=== PATIENT | female | born 1935 | race Caucasian/White ===

== ENCOUNTER 2017-01-18 13:30 | Emergency (ER) | payer MEDICARE, BC ==
[~2017-01-18] VITALS: Ht 160 cm; Wt 67.6 kg
[2017-01-18] MEDS ORDERED: ATOR10TA PO (13:50)
[2017-01-18] MEDS ORDERED: METO-304 PO (13:50)
[2017-01-18] MEDS ORDERED: LOSA25TA13 PO (13:50)
--- NOTE | 2017-01-18 14:29 | NUR ---
PATIENT OUT OF UNIT FOR CT SCAN VIA WHEELCHAIR
[2017-01-18] MEDS ORDERED: TRAMADOL HCL 50 MG TABLET PO ONE (14:30)
--- NOTE | 2017-01-18 14:50 | NUR ---
PATIENT BACK FROM CT SCAN WITH NO DISTRESS NOTED
[2017-01-18] MEDS ORDERED: TRAMADOL HCL 50 MG TABLET ONE (15:11)
--- NOTE | 2017-01-18 16:52 | NUR ---
Patient discharged to home in stable conditon WITH FRIEND TAKING PATIENT HOME. Written and verbal after care instructions given. Patient verbalizes understanding of instructions. WALKED OUT OF ER WITH STEADY GAIT WITH NO DISTRESS NOTED
[2017-01-18 16:53] VITALS: BP 138/77
== END 2017-01-18 16:54 | disposition home or self-care (01) ==
LOC: ER 13:30
DX: S40.012A Contusion of left shoulder, initial encounter (principal); M25.561 Pain in right knee; R51 Headache; I10 Essential (primary) hypertension; E78.5 Hyperlipidemia, unspecified; W01.0XXA Fall on same level from slipping, tripping and stumbling without subsequent striking against object, initial encounter; Y93.89 Activity, other specified; Y99.8 Other external cause status; Y92.89 Other specified places as the place of occurrence of the external cause
CPT/HCPCS: 70450; 73030; 73560; A4663